=== PATIENT | female | born 1985 | race Caucasian/White ===

== ENCOUNTER 2019-11-29 09:41 | Emergency (ER) | payer SELFPAY ==
[2019-11-29] MEDS ORDERED: Acetaminophen 500 MG Tab PO ONE (09:54)
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
== END 2019-11-29 10:04 ==
LOC: MW.ED 09:41
DX: S00.03XA Contusion of scalp, initial encounter (principal); Y04.2XXA Assault by strike against or bumped into by another person, initial encounter
CPT/HCPCS: 99284; A9270; 99282